=== PATIENT | female | born 2000 | race Caucasian/White ===

== ENCOUNTER 2021-11-04 19:08 | Emergency (ER) | payer OTHER, SELFPAY ==
--- NOTE | ~2021-11-04 | XR_ITS ---
EXAM: XR lumbar spine min 4V DATE: 11/04/2021 19:50 HISTORY: KNI. NUMBNESS IN LT LEG. . COMPARISON: None available. FINDINGS: 5 nonrib-bearing lumbar-type vertebral bodies. Pedicles intact. Normal vertebral body alig nment. Vertebral body heights preserved. Disc spaces maintained. Normal facets and posterior elements . No fracture or dislocation. IMPRESSION: Normal lumbar spine radiograph findings. Reviewed, dictated and finalized at location K.
[2021-11-04 19:14] VITALS: BP 91/54; PULSE 146; RESP 18; TEMP 37.4; O2SAT 100
--- NOTE | 2021-11-04 19:34 | ED.BACK ---
HPI - Back Pain/Injury General Chief Complaint: Back Pain/Injury Stated Complaint: Pain in lower back; numbness in left leg Time Seen by Provider: 11/04/21 20:10 Source: patient and RN notes reviewed Mode of arrival: ambulatory Limitations: no limitations History of Present Illness HPI Narrative: 21-year-old female presents with concern for low back pain that starts midline and radiates to the right and down her left leg. She reports having numbness in her right leg today. She denies injury or trauma. She reports feeling malaised today, fast heart rate. Reports sweats that started this evening. She reports a history of ankylosing spondylosis for which she takes low-dose prednisone and meloxicam daily. Reports she went to the emergency room for the symptoms but was there for 5 hours and could not wait any longer. She denies abdominal pain, nausea, vomiting, upper respiratory symptoms, cough. MD elicited complaint: back pain Related Data Home Medications Medication Instructions Recorded Confirmed albuterol sulfate 90 mcg/actuation See Rx Instructions .Route 11/04/21 11/04/21 aerosol inhaler .COMPLEX PRN sob etonogestrel 0.12 mg-ethinyl See Rx Instructions .Route .COMPLEX 11/04/21 11/04/21 estradiol 0.015 mg/24 hr vaginal ring (EluRyng) meloxicam 7.5 mg tablet 7.5 mg PO DAILY 11/04/21 11/04/21 prednisone 5 mg tablet 5 mg PO DAILY 11/04/21 11/04/21 Allergies Allergy/AdvReac Type Severity Reaction Status Date / Time No Known Allergies Allergy Unverified 11/04/21 19:37 Review of Systems Review of Systems: CONSTITUTIONAL: Reports malaise, sweats sweats, low-grade fever. CARDIOVASCULAR: Denies chest pain, palpitations, or edema. Reports fast heart rate RESPIRATORY: Denies cough or dyspnea. GASTROINTESTINAL: Denies abdominal pain, nausea, vomiting, diarrhea, loss of bowel function GENITOURINARY: Denies dysuria, hematuria, frequency, loss of bladder function. SKIN: Denies rash or itching. MUSCULOSKELETAL: Reports low back pain that radiates to the left leg, reports left leg numbness NEUROLOGIC: Denies weakness or headache. All systems reviewed & are unremarkable except as noted in HPI and below [facility] Comments At time of signature, agree with nursing past medical, surgical, social and family history. There is no relevant family history pertinent to the presenting complaint Exam Narrative: GENERAL: Nontoxic-appearing and in no acute distress. HEAD: Normocephalic, atraumatic. EYES: PERRLA and EOMI. NECK: Supple. No lymphadenopathy. CHEST: Clear to auscultation. No respiratory distress. HEART: Regular rate and rhythm. Distal pulses palpable and equal, cap refill <3 seconds ABDOMEN: Soft, nontender, nondistended, normal active bowel sounds, no palpable or pulsatile masses. No CVA tenderness MUSCULOSKELETAL: Normal range of motion and strength in all extremities; 5/5 strength with hip flexion and extension, dorsiflexion and extension, knee flexion and extension, plantar flexion and extension. Normal sensation in dermatomal distributions with sensitivity to light touch and pain. No midline back tenderness to palpation. No paraspinal tenderness. Transfers from lying to sitting to standing. SKIN: Clammy, warm no rash. No ecchymosis, erythema, open wounds to back. NEURO: No focal deficits. Alert and oriented x3. Reflexes intact. Normal gait. PSYCH: Normal mood and affect Course Course Emergency Course: Discussed with patient that she needs to follow-up with her primary care doctor tomorrow for further evaluation, at this time I cannot rule out a kidney stone versus UTI versus pyelonephritis versus nonspecific low back pain. Patient is aware of, understands and agrees to treatment plan. Anticipatory guidance given. Patient agrees to follow-up as directed and is aware of reasons to seek care at the emergency department. Portions of this record may have been created with voice recognition software Level of Care: [facility]
[2021-11-04] MEDS: KETOROLAC (*BKC) 60 MG/2 ML VIAL IM (20:16)
[2021-11-04 20:45] VITALS: BP 98/60; PULSE 95
== END 2021-11-04 20:55 | disposition home or self-care (01) ==
PROVIDERS: Emergency Provider Nurse Practitioner
DX: R10.9 Unspecified abdominal pain (principal); J45.990 Exercise induced bronchospasm; Z86.16 Personal history of COVID-19; M45.9 Ankylosing spondylitis of unspecified sites in spine
CPT/HCPCS: 72110; 81003; 87077; 87086; 87186; 96372; 99214; G0463; J0696; J1885